=== PATIENT | female | born 1995 | race Caucasian/White ===

== ENCOUNTER 2017-12-10 12:05 | Emergency (ER) | payer OTHER ==
--- NOTE | 2017-12-10 12:37 | EDPHY ---
H & P Time Seen by Provider: 12/10/17 12:36 HPI/ROS: CHIEF COMPLAINT: Right elbow pain HISTORY OF PRESENT ILLNESS: Patient is a 22-year-old female who was rollerblading today and fell onto an outstretched right arm. She felt sudden pain in her right elbow. She has had limited range of motion of the elbow since. She denies any numbness in her fingers or arm. She denies any neck pain or head injury. She has tried no medication to alleviate her pain he had. She takes no prescribed medication. She denies . ROS As detailed in HPI Smoking Status: Never smoked Physical Exam: General: Alert and oriented. Nontoxic appearing. No acute distress HEENT: Pupils PERRLA. No oral lesions. Cardiopulmonary: Regular rate and rhythm. No lower extremity edema Skin: [place] warm and dry. No lesions. Muscle skeletal: Moving all 4 extremities. Equal strength in upper extremities and lower extremities. Ambulatory. Full flexion of the right elbow but missing approximately 20 degrees of full extension. Neurovascular intact distal to the right elbow. Tenderness over right radial head. Constitutional: Initial Vital Signs Temperature (C) 36.7 C 12/10/17 12:15 Heart Rate 78 12/10/17 12:15 Respiratory Rate 18 12/10/17 12:15 Blood Pressure 108/73 12/10/17 12:15 O2 Sat (%) 97 12/10/17 12:15 O2 Delivery Mode Room Air Allergies/Adverse Reactions: No Known Allergies Allergy (Unverified 12/10/17 12:14) Home Medications: Medication Instructions Recorded NK [No Known Home Meds] 12/10/17 Medical Decision Making - Diagnostics Imaging Results: Imaging Impressions Elbow X-Ray 12/10/17 12:17 Impression: Suspect subtle nondisplaced radial head fracture. Recommend treating the elbow as if there is a fracture and obtaining follow-up x-rays in 7 -10 days. Procedures: Patient placed in a shoulder sling and a to be neurovascular intact after the sling placement. ED Course/Re-evaluation: 22-year-old female here with FOOSH injury to the right elbow. X-ray reveals sail sign a possible nondisplaced radial head fracture. She was placed in a shoulder sling and given orthopedic follow-up. She has no hand wrist or shoulder pain and no other signs of injury. Differential Diagnosis: Fracture, dislocation, ligamentous instability, compartment syndrome Departure - Departure Disposition: Home, Routine, Self-Care Clinical Impression: Radial head fracture, closed Condition: Good Instructions: Elbow Fracture (ED) Additional Instructions: You're x-ray shows probable radial head fracture. Limited range of motion is likely due to blood within the joint. Or the shoulder sling as given to today until he follow up with Orthopedics early this week. Call tomorrow morning for an appointment. Take the elbow out of the sling and do gentle [id number] a few times a day until he sees Orthopedics. Use ice and ibuprofen for pain inflammation. Referrals: NONE *PRIMARY CARE P,. [Primary Care Provider] - As per Instructions Roland Givens MD [Medical Doctor] - As per Instructions
[2017-12-10 13:31] VITALS: BP 104/66
== END 2017-12-10 13:31 | disposition home or self-care (01) ==
DX: S52.124A Nondisplaced fracture of head of right radius, initial encounter for closed fracture (principal); V00.111A Fall from in-line roller-skates, initial encounter; Y93.51 Activity, roller skating (inline) and skateboarding; Y99.8 Other external cause status
CPT/HCPCS: A4565